=== PATIENT | female | born 1995 | race African-American/Black ===

== ENCOUNTER 2016-12-12 00:51 | Emergency (ER) | payer OTHER ==
[~2016-12-12] VITALS: Ht 165.1 cm; Wt 94.3 kg
--- NOTE | ~2016-12-12 | EKG ---
[address] [address] ELECTROCARDIOGRAM REPORT Name: BEATRIZ ARMENDARIZ Room #: DEP [facility]#: [id number] Admission: 12/12/16 Attend Phys: Discharge: 12/12/16 Date of : 89 Report #: [id number] THIS REPORT FOR: //name// 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 : 1995 Requested By: Fabian Delgado Order Number: [id number] MD: Santhosh Seals Measurements Intervals [place] Rate: 152 P: 70 [place]: 110 QRS: 46 QRSD: 86 T: -76 QT: 321 QTc: 511 Interpretive Statements Sinus tachycardia Nonspecific T abnormalities, diffuse leads Prolonged QT interval Compared to ECG 07/17/2014 22:01:23 T-wave abnormality now present Sinus tachycardia is now present QT interval has lengthened Electronically Signed On 12-13-2016 13:42:10 CDT by Santhosh Seals [email or web address] <ELECTRONICALLY SIGNED> By: Santhosh Seals MD, [facility] 12/13/16 1342 [id number] Santhosh Seals MD, [facility] /EPI
[~2016-12-12 00:51] MED LIST: MIRALAX255 GM PO; PRILOSEC 20 MG20 MG PO
[2016-12-12 01:43] LABS: ABSOLUTE NEUTROPHILS 10.8 thou/uL (1.4-8.2); BASOPHILS 0.2 % (0.0-2.0); HEMATOCRIT 36.1 % (37.0-47.0); HEMOGLOBIN 11.8 gm/dL (12.0-15.0); LYMPHOCYTES 14.9 % (24.0-44.0); MCH 25.7 pg (26.0-34.0); MCHC 32.8 g/dL (28.0-37.0); MCV 78.4 fL (80.0-100.0); MONOCYTES 6.9 % (1.0-8.0); PLATELET COUNT 249 thou/uL (150-400); WBC 14.2 thou/uL (4.0-11.0)
[2016-12-12 01:48] LABS: MANUAL DIFF NO
[2016-12-12 01:53] LABS: ANION GAP 14 mmol/L (7-16); BUN 9 mg/dL (7-18); CALCIUM 7.3 mg/dL (8.5-10.1); CHLORIDE 108 mmol/L (98-107); CO2 19 mmol/L (21-32); CREATININE 0.6 mg/dL (0.6-1.0); GLUCOSE 190 mg/dL (74-106); SODIUM 141 mmol/L (136-145)
[2016-12-12 01:55] LABS: POTASSIUM 2.7 mmol/L (3.5-5.1)
[2016-12-12 02:01] LABS: ALKALINE PHOSPHATASE 151 U/L (46-116); MAGNESIUM 1.5 mg/dL (1.8-2.4); SGOT 26 U/L (15-37); SGPT 20 U/L (30-65); TOTAL BILIRUBIN 0.1 mg/dL (<0.1-1.0)
[2016-12-12 02:02] LABS: ALBUMIN 2.7 g/dL (3.4-5.0); TOTAL PROTEIN 6.4 g/dL (6.4-8.2); TROPONIN-I < 0.04 ng/mL (<0.04-0.07)
[2016-12-12] MEDS ORDERED: ATIVAN0.5 MG PO (02:39)
[2016-12-12] MEDS ORDERED: POTASSIUM20 PO (02:39)
[2016-12-12 02:57] LABS: AMP/METHAMP Negative (Negative); BARBITURATES Negative (Negative); BENZODIAZEPINES Negative (Negative); COCAINE Negative (Negative); METHADONE Negative (Negative); OPIATES Negative (Negative); PCP Negative (Negative); THC POSITIVE (Negative)
[2016-12-12 03:45] VITALS: BP 117/67
== END 2016-12-12 03:47 | disposition home or self-care (01) ==
LOC: ER 00:51
PROVIDERS: Emergency Medicine
DX: R00.0 Tachycardia, unspecified (principal); F41.9 Anxiety disorder, unspecified; E87.6 Hypokalemia; E83.42 Hypomagnesemia; R73.9 Hyperglycemia, unspecified

== ENCOUNTER 2016-12-28 13:31 | Emergency (ER) | payer OTHER ==
[~2016-12-28] VITALS: Ht 165.1 cm; Wt 93.0 kg
[~2016-12-28 13:31] MED LIST changes: +ATIVAN0.5 MG PO; +POTASSIUM20 PO
[2016-12-28 15:18] LABS: HEMATOCRIT 38.9 % (37.0-47.0); HEMOGLOBIN 12.5 gm/dL (12.0-15.0); MCH 25.1 pg (26.0-34.0); MCHC 32.2 g/dL (28.0-37.0); MCV 77.7 fL (80.0-100.0); RDW 13.9 % (10.5-14.5); WBC 13.6 thou/uL (4.0-11.0)
[2016-12-28 15:32] LABS: CALCIUM 9.1 mg/dL (8.5-10.1); CREATININE 0.7 mg/dL (0.6-1.0)
[2016-12-28 15:53] VITALS: BP 119/90
== END 2016-12-28 15:54 | disposition home or self-care (01) ==
LOC: ER 13:31
PROVIDERS: Emergency Medicine
DX: F41.9 Anxiety disorder, unspecified (principal); F32.9 Major depressive disorder, single episode, unspecified

== ENCOUNTER 2017-06-18 21:09 | Emergency (ER) | payer OTHER ==
[~2017-06-18] VITALS: Ht 165.1 cm; Wt 97.1 kg
== END 2017-06-18 22:11 | disposition home or self-care (01) ==
LOC: ER 21:09
DX: J00 Acute nasopharyngitis [common cold] (principal); J35.8 Other chronic diseases of tonsils and adenoids

== ENCOUNTER 2017-10-28 17:48 | Emergency (ER) | payer OTHER ==
[~2017-10-28] VITALS: Ht 162.6 cm; Wt 97.5 kg
[2017-10-28 20:01] LABS: ABSOLUTE NEUTROPHILS 7.4 thou/uL (1.4-8.2); BASOPHILS 0.5 % (0.0-2.0); EOSINOPHILS 4.4 % (0.0-3.0); HEMATOCRIT 36.8 % (37.0-47.0); HEMOGLOBIN 12.2 gm/dL (12.0-15.0); LYMPHOCYTES 18.5 % (24.0-44.0); MCH 26.3 pg (26.0-34.0); MCHC 33.1 g/dL (28.0-37.0); MCV 79.6 fL (80.0-100.0); PLATELET COUNT 295 thou/uL (150-400); POLYS 71.6 % (36.0-66.0); RBC 4.63 mil/uL (4.20-5.00); RDW 14.5 % (10.5-14.5); WBC 10.4 thou/uL (4.0-11.0)
[2017-10-28 20:05] LABS: URINE BILIRUBIN NEGATIVE (Negative); URINE BLOOD 2+ (Negative); URINE CLARITY CLEAR; URINE COLOR YELLOW; URINE GLUCOSE-RANDOM* NEGATIVE (Negative); URINE KETONES NEGATIVE (Negative); URINE LEUKOCYTES NEGATIVE (Negative); URINE NITRITE NEGATIVE (Negative); URINE PROTEIN (DIPSTICK) NEGATIVE (Negative)
[2017-10-28 20:20] LABS: CALCIUM 8.5 mg/dL (8.5-10.1); CREATININE 0.6 mg/dL (0.6-1.0); POTASSIUM 3.9 mmol/L (3.5-5.1)
[2017-10-28 20:20] LABS: BACTERIA 1-9 Few /HPF (None Seen); CASTS None Seen /LPF (None Seen); CRYSTALS None Seen /LPF (None Seen); SQUAMOUS >10 Many /LPF (0-3); URINE RBC 3-10 Few /HPF (0-2); URINE WBC 0-5 Rare /HPF (0-5)
[2017-10-28 20:24] LABS: ALBUMIN 3.5 g/dL (3.4-5.0); DIRECT BILIRUBIN 0.1 mg/dL (<0.1-0.3); TOTAL BILIRUBIN 0.2 mg/dL (<0.1-1.0); TOTAL PROTEIN 8.3 g/dL (6.4-8.2)
[2017-10-28] MEDS ORDERED: ZOFRAN ODT4 MG PO (21:24)
[2017-10-28] MEDS ORDERED: PEPCID40 MG PO (21:24)
[2017-10-28 22:32] VITALS: BP 120/76
== END 2017-10-28 22:25 | disposition home or self-care (01) ==
LOC: ER 17:48
PROVIDERS: Emergency Medicine
DX: K21.9 Gastro-esophageal reflux disease without esophagitis (principal); M54.9 Dorsalgia, unspecified; Z98.890 Other specified postprocedural states